=== PATIENT | male | born 1965 | race Caucasian/White ===

== ENCOUNTER 2017-08-28 10:23 | Day surgery (SDC) | payer OTHER ==
--- NOTE | 2017-08-24 10:31 | EKG ---
Test Date: 2017-08-24 Test Time: 10:07:25 [employer]ed Circuit [employer] Drafter: MARY MEASUREMENT RESULTS: Intervals: Rate: 68 ME: 158 QRSD: 104 QT: 380 QTc: 404 [place]: P: 15 ME: 158 QRS: 7 T: 17 INTERPRETIVE STATEMENTS: Normal sinus rhythm Voltage criteria for left ventricular hypertrophy Abnormal ECG No previous ECG available for comparison Electronically Signed On 08-24-17 10:30:43 CDT by Leon Sinha
[2017-08-28] MEDS ORDERED: NA CHLORIDE 0.9% 1,000 ML ONE (10:27)
[2017-08-28] MEDS ORDERED: OXYMETAZOLINE HCL 0.05% 30ML NAS ONE (10:34)
[2017-08-28] MEDS ORDERED: LIDOCAINE 1% W/EPI 1:100,000 MDV 50 ML VIAL ONE (10:35)
[2017-08-28] MEDS ORDERED: NA CHLORIDE 0.9% 500 ML ONE (10:35)
[2017-08-28] MEDS: OXYMETAZOLINE HCL 0.05% 30ML NAS ONE ×3 (10:40→10:50)
[2017-08-28] MEDS ORDERED: MIDAZOLAM HCL 2 MG/2 ML INJ ONE (10:42)
[2017-08-28] MEDS ORDERED: FENTANYL CITR 250 MCG/5 ML ONE (11:27)
[2017-08-28] MEDS ORDERED: LIDOCAINE 2% MPF 5 ML VIAL ONE (11:27)
[2017-08-28] MEDS ORDERED: PROPOFOL 200 MG/20 ML VIAL IV ONE (11:27)
[2017-08-28] MEDS ORDERED: DEXAMETHASONE 10 MG/ML VIAL ONE (11:27)
[2017-08-28] MEDS ORDERED: ROCURONIUM 50 MG/5 ML VIAL IV ONE (11:27)
[2017-08-28] MEDS ORDERED: EPHEDRINE SULF 50 MG/5 ML SYR ONE (12:05)
[2017-08-28] MEDS ORDERED: KETOROLAC 30 MG/ML INJ ONE (12:35)
--- NOTE | 2017-08-28 12:47 | P.BOP ---
Preoperative diagnosis: septal deviation, ITH, nasal obstruction Postoperative diagnosis: same Primary procedure: septoplasty, ITR Makeup Instructor: NONE,NONE Estimated blood loss: 30ml Specimen: none Findings: R cartilage and bony deviation Anesthesia: General Complications: None Implants: B NC gelfoam packing Transferred to: Recovery Room Condition: Good
--- NOTE | 2017-08-30 20:37 | OP ---
Date of Procedure: 08/28/2017 Surgeon: Maya Rose MD Preoperative Diagnoses: Septal deviation, inferior turbinate hypertrophy, nasal obstruction. Postoperative Diagnoses: Septal deviation, inferior turbinate hypertrophy, nasal obstruction. Procedures: Septoplasty and submucous resection of the inferior turbinate. Description Of Procedure: The patient is brought to the operating room. He was placed under general anesthesia via oral endotracheal tube. The head of bed was turned 90 degrees and the patient's sept um was injected with 1% lidocaine with epinephrine. Afrin-soaked pledgets were placed within the kalie al cavity and the patient was draped in standard fashion for nasal surgery. The pledgets were remove d and a right renuka-transfixion incision was made to the nasal mucosa. Bilateral submucous flaps were elevated using a Ct elevator and the deviated portion of the cartilage inferiorly was incised. The bony septum was incised using scissors and a Regan rongeur. The right septal spur was removed a nd the septal flaps were carefully replaced revealing significant improvement in the right nasal airw ay. After removal of the septal and the cartilaginous and bony deviated portions. During elevation of the mucosa over the right spur, a laceration in the mucosal flap was created, but the left flap re mained intact. Once the septum was improved, a submucous resection of the left inferior turbinate wa s performed. A small stab incision was made in the head of the inferior turbinate and a submucosal p ocket was created by dissection using a caudal elevator. The microdebrider fitted with the inferior turbinate blade was used to perform judicious resection of submucosal tissue. Then a down fracture o f the bilateral inferior turbinates was performed using a Anderson elevator. The nose was packed with Afrin-soaked pledgets to aid in hemostasis for several minutes. After removal of the pledgets, the hemitransfixion incision was closed in a running fashion using 5-0 plain gut suture. The mucosal fla ps were then approximated using a mattressing suture. There was mild persistent oozing from the righ t septal mucosal laceration and from the left inferior turbinate resection sites, therefore Gel-Foam packing was applied into the nasal cavity to aid in hemostasis. The patient's nasal and oropharynx w ere thoroughly suctioned. The patient was returned to care of Anesthesia for awakening extubation in the operating room, which proceeded without difficulty. Complications: None. Disposition: The patient will be discharged home later today and follow up with Dr. Rose in 10 da ys for evaluation of healing. ALYSE/ADRIANA Voice ID: [id number] Report ID: [id number]
== END 2017-08-28 14:18 | disposition home or self-care (01) ==
LOC: OR 10:23
PROVIDERS: ATTEND Otolaryngology
PROC: 09TL8ZZ Resection of Nasal Turbinate, Via Natural or Artificial Opening Endoscopic (ICD-10-PCS; 2017-08-28)
PROC: 09BM8ZZ Excision of Nasal Septum, Via Natural or Artificial Opening Endoscopic (ICD-10-PCS; principal; 2017-08-28 11:30)
DX: J34.2 Deviated nasal septum (principal); J34.3 Hypertrophy of nasal turbinates; G47.33 Obstructive sleep apnea (adult) (pediatric); I10 Essential (primary) hypertension; E66.9 Obesity, unspecified; Z83.3 Family history of diabetes mellitus; Z82.49 Family history of ischemic heart disease and other diseases of the circulatory system
CPT/HCPCS: 82962; 93005; J1100; J2250; J7030